=== PATIENT | female | born 1990 | race African-American/Black ===

== ENCOUNTER 2019-12-16 20:19 | Emergency (ER) | payer OTHER ==
[~2019-12-16] VITALS: Ht 170.2 cm; Wt 81.7 kg
[2019-12-16 20:54] LABS: ABSOLUTE NEUTROPHILS 12.5 thou/uL (1.4-8.2); BASOPHILS 0.4 % (0.0-2.0); EOSINOPHILS 0.1 % (0.0-3.0); HEMATOCRIT 45.9 % (37.0-47.0); HEMOGLOBIN 15.5 gm/dL (12.0-15.0); LYMPHOCYTES 6.4 % (24.0-44.0); MCH 29.6 pg (26.0-34.0); MCHC 33.7 g/dL (28.0-37.0); MCV 87.7 fL (80.0-100.0); MONOCYTES 5.6 % (1.0-8.0); PLATELET COUNT 332 thou/uL (150-400); POLYS 87.5 % (36.0-66.0); RBC 5.23 mil/uL (4.20-5.00); RDW 15.2 % (10.5-14.5); WBC 14.3 thou/uL (4.0-11.0)
[2019-12-16 20:59] LABS: ANION GAP 22 mmol/L (7-16); BUN 22 mg/dL (7-18); CHLORIDE 98 mmol/L (98-107); CO2 19 mmol/L (21-32); GLUCOSE 44 mg/dL (74-106); POTASSIUM 3.3 mmol/L (3.5-5.1); SODIUM 139 mmol/L (136-145)
[2019-12-16 21:06] LABS: ALBUMIN 4.8 g/dL (3.4-5.0); MAGNESIUM 2.1 mg/dL (1.8-2.4); SGOT 38 U/L (15-37); SGPT 39 U/L (30-65); TOTAL BILIRUBIN 1.5 mg/dL (<0.1-1.0); TOTAL PROTEIN 8.8 g/dL (6.4-8.2); TROPONIN-I <0.06 ng/mL (<0.06)
[2019-12-16 22:53] LABS: URINE BILIRUBIN NEGATIVE (Negative); URINE BLOOD NEGATIVE (Negative); URINE CLARITY SL CLOUDY; URINE COLOR YELLOW; URINE GLUCOSE-RANDOM* NEGATIVE (Negative); URINE KETONES 1+ (Negative); URINE LEUKOCYTES-REFLEX NEGATIVE (Negative); URINE NITRITE-REFLEX NEGATIVE (Negative); URINE PROTEIN (DIPSTICK) 1+ (Negative); URINE SPECIFIC GRAVITY >= 1.030 (1.005-1.035); URINE UROBILINOGEN 0.2 E.U./dl (0.2-1.0)
[2019-12-16 23:01] LABS: AMP/METHAMP POSITIVE (Negative); BARBITURATES Negative (Negative); BENZODIAZEPINES Negative (Negative); COCAINE Negative (Negative); METHADONE Negative (Negative); OPIATES Negative (Negative); PCP Negative (Negative)
[2019-12-16 23:02] LABS: BACTERIA-REFLEX 1-9 Few /HPF (None Seen); HYALINE CASTS 4-10 Moderate /LPF (None Seen); MUCUS 4-6 Moderate strn/LPF (None Seen); SQUAMOUS 0-3 Few /LPF (0-3); URINE RBC 0-2 Rare /HPF (0-2); URINE WBC-REFLEX 0-5 Rare /HPF (0-5)
[2019-12-16 23:03] LABS: CRYSTALS None Seen /LPF (None Seen)
[2019-12-17 01:13] VITALS: BP 103/61
[2019-12-17] MEDS ORDERED: DOXYCYCLINE 10100 MG PO (02:43)
--- NOTE | 2019-12-17 09:10 | EKG ---
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
== END 2019-12-17 03:02 ==
LOC: ER 20:19
PROVIDERS: Emergency Medicine
DX: F15.10 Other stimulant abuse, uncomplicated (principal); F31.9 Bipolar disorder, unspecified; E16.2 Hypoglycemia, unspecified; E87.2 Acidosis; R74.8 Abnormal levels of other serum enzymes; F41.9 Anxiety disorder, unspecified